=== PATIENT | male | born 1990 | race Caucasian/White ===

== ENCOUNTER → 2020-10-23 | Outpatient (CLI) | payer OTHER | LOC: COL.PUL 08:15 | DX: J45.40 Moderate persistent asthma, uncomplicated (principal) | CPT/HCPCS: J7674 ==

== ENCOUNTER → 2020-11-19 | Outpatient (CLI) | payer OTHER | LOC: COL.VAS 12:01 | DX: R06.02 Shortness of breath (principal) ==